=== PATIENT | female | born 1950 | race Caucasian/White ===

== ENCOUNTER → 2017-11-30 | Outpatient (CLI) | payer BC, MEDICARE ==
[2017-11-30 16:08] LABS: HCT 39.5 % (34.0-46.0); HGB 12.3 gm/dL (11.4-16.0); Hypochromasia Moderate; MCH 27.6 pg (25.0-35.0); MCHC 31.1 g/dL (31.0-37.0); MCV 88.6 fL (80.0-100.0); Platelet Count 440 k/uL (150-450); RBC 4.46 m/uL (3.80-5.40); RDW 15.9 % (11.5-15.5); WBC 14.1 k/uL (3.8-10.6)
[2017-11-30 16:22] LABS: ALT 25 U/L (9-52); AST 22 U/L (14-36); Albumin 3.3 g/dL (3.5-5.0); Alkaline Phosphatase 71 U/L (38-126); Anion Gap 8 mmol/L; Blood Urea Nitrogen 8 mg/dL (7-17); Calcium 8.8 mg/dL (8.4-10.2); Carbon Dioxide 32 mmol/L (22-30); Chloride 102 mmol/L (98-107); Glucose 97 mg/dL (74-99); Sodium 142 mmol/L (137-145); Total Bilirubin 0.7 mg/dL (0.2-1.3); Total Protein 6.3 g/dL (6.3-8.2)
[2017-11-30 16:27] LABS: Potassium 2.9 mmol/L (3.5-5.1)
--- NOTE | 2017-11-30 18:41 | CT ---
EXAMINATION TYPE: CT abdomen pelvis w con DATE OF EXAM: 11/30/2017 COMPARISON: NONE HISTORY: Abdominal pain, diarrhea and constipation CT DLP: 365.5 mGycm Automated exposure control for dose reduction was used. TECHNIQUE: Helical acquisition of images was performed from the lung bases through the pelvis. CONTRAST: Performed with Oral Contrast and with IV Contrast, patient injected with 100 mL of Omnipaque 300. FINDINGS: Lung bases are clear. There is no pleural effusion. Liver spleen pancreas gallbladder appear normal. Bile ducts are not dilated. There is no adrenal mass. Kidneys have normal size. There is right-sided hydronephrosis and hydroureter. Left ureter appears normal. There is wall thickening and fat stranding around the sigmoid colon. There are sigmoid diverticula. There is no retroperitoneal adenopathy. Abdominal aorta is atheromatous. Appendix is not seen. There is no sign of appendicitis. Appendix is not definitely seen. Appendix and the tip of the cecum are in the region of the inflammatory changes around the sigmoid colon. I see no bony destructive process. Uterus is anteverted. Bladder distends smoothly. IMPRESSION: MODERATE INFLAMMATORY CHANGES IN THE PELVIS AROUND THE SIGMOID COLON THAT COULD RELATE TO COLITIS OR DIVERTICULITIS. THERE IS INVOLVEMENT OF THE RIGHT URETER WITH RIGHT-SIDED HYDRONEPHROSIS AND HYDROURE TER. NO URETERAL CALCULUS IS SEEN. THE POSSIBILITY OF APPENDICITIS CANNOT BE EVALUATED BECAUSE OF THE INFLAMMATORY CHANGES.
== END | disposition home or self-care (01) ==
LOC: RADCTMAIN 15:38
PROVIDERS: ATTEND Surgery
DX: N13.30 Unspecified hydronephrosis (principal); N13.4 Hydroureter; R93.8 Abnormal findings on diagnostic imaging of other specified body structures
CPT/HCPCS: 80053; 85027; 74177; 36415; Q9967

== ENCOUNTER → 2017-12-03 | Outpatient (CLI) | payer BC, MEDICARE | END | disposition home or self-care (01) | LOC: LABWHC1 14:36 | PROVIDERS: ATTEND Surgery | DX: E87.6 Hypokalemia (principal) | CPT/HCPCS: 36415; 84132 ==

== ENCOUNTER → 2017-12-08 | Outpatient (CLI) | payer BC, MEDICARE ==
[2017-12-07 11:33] VITALS: BMI 20.1
[~2017-12-08] MED LIST: ACETAMINOPHEN TAB 500 MG TAB PO ONE; ALVIMOPAN 12 MG CAPSULE PO ONE; Antibiotics per Pharmacy 1 EACH MISC MISCELLANE PRN; HEPARIN SODIUM,PORCINE 5,000 UNIT/ML 1 ML VIAL SQ ONE; LACTATED RINGERS 1,000 ML IV SCH; LIDOCAINE 1% 20 ML VIAL (10MG/ML) FOR IV START INTRADERMA ONE; ceFAZolin IN SWFI 2 GM/20 ML SYRINGE IVP ONE; metroNIDAZOLE-NS PMX 500 MG in SALINE 1 100ML.BAG IVPB ONE
[2017-12-08 11:11] VITALS: BP 104/54; PULSE 70; RESP 16; TEMP 98
[2017-12-08 11:31] LABS: Basophils # (A) 0.1 k/uL (0-0.2); Basophils % (A) 1 %; Eosinophils # (A) 0.2 k/uL (0-0.7); Eosinophils % (A) 2 %; HCT 34.8 % (34.0-46.0); HGB 10.9 gm/dL (11.4-16.0); Hypochromasia Slight; Lymphocytes # (A) 2.3 k/uL (1.0-4.8); Lymphocytes % (A) 25 %; MCH 27.6 pg (25.0-35.0); MCHC 31.3 g/dL (31.0-37.0); MCV 88.1 fL (80.0-100.0); Mean Platelet Volume 7.4; Monocytes # (A) 0.8 k/uL (0-1.0); Monocytes % (A) 9 %; Neutrophils # (A) 5.4 k/uL (1.3-7.7); Neutrophils % (A) 61 %; Platelet Count 426 k/uL (150-450); RBC 3.95 m/uL (3.80-5.40); RDW 14.9 % (11.5-15.5); WBC 8.9 k/uL (3.8-10.6)
[2017-12-08 11:59] LABS: ALT 44 U/L (9-52); AST 26 U/L (14-36); Albumin 2.9 g/dL (3.5-5.0); Alkaline Phosphatase 94 U/L (38-126); Anion Gap 10 mmol/L; Blood Urea Nitrogen 8 mg/dL (7-17); Calcium 8.7 mg/dL (8.4-10.2); Carbon Dioxide 24 mmol/L (22-30); Chloride 107 mmol/L (98-107); Glucose 72 mg/dL (74-99); Potassium 4.3 mmol/L (3.5-5.1); Sodium 141 mmol/L (137-145); Total Bilirubin 0.5 mg/dL (0.2-1.3); Total Protein 5.7 g/dL (6.3-8.2)
--- NOTE | 2017-12-08 12:53 | P.PN ---
Progress Note - Text Patient presented today for surgical exploration and probable low anterior resection possible colostomy. However upon the re-review of radiographs there is increasing concern that this may represent not diverticular disease but a malignancy. In view of the fact that this may be malignant and is fairly deep in the pelvis there is concern as to whether patient may benefit from preoperative chemoradiation. Attempts at an outside facility to do colonoscopy were unsuccessful secondary to inability to advance the colonoscope and no tissue diagnosis was obtained. An outside barium enema showed narrowing of the sigmoid colon. Her surgical procedure was being scheduled on a somewhat urgent basis secondary to concerns about obstruction in the near future. After discussion with the patient and her family regarding the increased concerns about malignancy it has been determined to transfer the patient to a tertiary care facility with a colorectal service. Patient at this time is hemodynamically stable. lungs clear heart RRR She has mild left lower quadrant tenderness, no guarding or rebound. Plan: Transfer to tertiary care facility for further evaluation
--- NOTE | 2017-12-08 12:55 | P.DS ---
Providers Date of admission: 12/08/17 10:26 Attending physician: Mi Blum Primary care physician: Eric Murrieta DO Plan - Discharge Summary Discharge Rx Participant: Yes New Discharge Prescriptions: No Action Potassium Chloride [Klor-Con 20] 20 meq PO BID Discharge Medication List Potassium Chloride [Klor-Con 20] 20 meq PO BID 12/07/17 [History] Activity/Diet/Wound Care/Special Instructions: Patient to be discharged from perioperative services to home per Dr. Nitish Ornelas. [facility] Admission Access to contact patient directly via [employer] at [phone], when bed becomes available today. Admission Access has asked that we provide the patient with their contact number, and to follow-up with them if they have not received phone call with bed assignment by 4pm today. When bed assignemtn is received, family will transport patient to [facility]. Patient has been directed to report to the nearest ER immediately with any problems prior to receiving their bed assignment. Discharge Disposition: HOME SELF-CARE
== END ==
LOC: 2ORWHC 10:26 → UNDOADMIN 10:26 → OR 10:26 → EDSTATUS 11:15 → UNDODISIN 13:14
PROVIDERS: ATTEND Surgery
DX: K57.32 Diverticulitis of large intestine without perforation or abscess without bleeding (principal); K56.609 Unspecified intestinal obstruction, unspecified as to partial versus complete obstruction; Z53.8 Procedure and treatment not carried out for other reasons; M41.9 Scoliosis, unspecified; M19.90 Unspecified osteoarthritis, unspecified site; Z86.718 Personal history of other venous thrombosis and embolism; Z79.899 Other long term (current) drug therapy; Z79.2 Long term (current) use of antibiotics; F17.210 Nicotine dependence, cigarettes, uncomplicated
CPT/HCPCS: 80053; 85025; 44145; C1769; J1644